=== PATIENT | male | born 1940 | race Caucasian/White ===

== ENCOUNTER 2017-04-12 06:28 | Inpatient (IN) | payer MEDICARE ==
--- NOTE | 2017-03-31 17:39 | HP ---
ADMISSION HISTORY AND PHYSICAL: DATE OF ADMISSION: 04/12/17 ATTENDING SURGEON: Dr. Donnie Galindo (dictated by FERNANDO Brown). CHIEF COMPLAINT: Abdominal wall hernia. HISTORY OF PRESENT ILLNESS: This is a 76-year-old male who underwent laparotomy in June 2016 for lysis of adhesions causing small-bowel obstruction. Surgery also included repair of a small bowel enterotomy. The patient had an otherwise uneventful recovery. In early January of this year, he noted the presence of a bulge in the superior portion of the incision, which has increased in size over time. He denies any pain related to the bulge. He does note increased bowel frequency (4 to 6 per day formed) since the mu-ism of the bulge. He denies any bright red blood per rectum or melena. He has had previous colonoscopies, the most recent being around 2007 and due for 10-year followup next year. He has been seen in the office by Dr. Galindo most recently in January and then again on 03/17/17. CT scan of the abdomen and pelvis was performed on 03/16/17 showing colon containing hernia superior to the umbilicus. Also noted was small bowel containing diastasis inferiorly. By exam, Dr. Galindo can appreciate the supraumbilical defect, which is nontender and easily reducible. There is no palpable defect inferior to the umbilicus. Dr. Galindo has discussed with him the indications for repair, the risks, benefits, and alternatives and the plan to use a mesh. The patient' s questions have been answered and he would like to proceed as scheduled with open repair of ventral incisional hernia with mesh. PAST MEDICAL HISTORY: 1. Chronic atrial fibrillation. 2. Hypothyroidism. 3. Status post pacemaker placement. PAST SURGICAL HISTORY: 1. As far as surgeries, he is status post what sounds like an open right inguinal hernia x2, laparoscopic (likely intraperitoneal). 2. Left inguinal hernia. 3. Left knee arthroscopy. 4. Bilateral cataract extraction. 5. Left eye surgery for what sounds like an entropion. CURRENT MEDICATIONS: 1. Pradaxa 150 mg b.i.d. (as the patient's renal function is normal, his last dose will be the morning of 04/10/17). 2. Tikosyn 500 mcg b.i.d. 3. Ramipril 5 mg daily. 4. Levothyroxine 100 mcg daily. 5. Multivitamin once daily. 6. Vitamin D 2000 IU once daily. DRUG ALLERGIES: None known. FAMILY HISTORY: Noncontributory in terms of anesthesia problems, bleeding or clotting disorders. SOCIAL HISTORY: The patient is . 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 He is fairly active going to the gym 3 times a week and doing both cardio and resistance exercises on a regular basis. He quit smoking around 1968. He denies recent use of tobacco or other recreational drugs. REVIEW OF SYSTEMS: General: No recent constitutional symptoms. Weight had been stable. HEENT: He is in the process of seeing an ophthalmology plastic surgeon after consideration of further lid repair on the left. No recent changes in vision. Cardiovascular: No chest pain or palpitations. He sometimes does note when he is in atrial fibrillation which comes and goes. He is chronically anticoagulated because of his AFib. No definitive history of stroke or TIA. Respiratory: No problems reported. No chronic cough or shortness of breath. GI: No problems reported other than per the HPI. Specifically, no nausea or vomiting. : No problems reported. Endocrine: He is on thyroid replacement. He is not diabetic. PHYSICAL EXAMINATION GENERAL: Well-nourished, well-developed male in no acute distress. VITAL SIGNS: Height 70 inches, weight 175 pounds, blood pressure 124/70, pulse 66, respirations 16, temperature 97.9. HEENT: Pupils equal, round, and reactive. EOMs intact. There is some mild conjunctival erythema on the left, which he states has been a chronic problem. Oropharynx: Teeth in good repair. No intraoral lesions. NECK: No lymphadenopathy, thyromegaly, or masses. LUNGS: Clear to auscultation. No rales or wheezes. There is a palpable pacemaker in the left upper anterior chest wall. HEART: Regular rate and rhythm. No murmur noted. ABDOMEN: Well-healed midline incision with visible bulge when the patient strains. This was centered just at and above the umbilicus. By palpation, there is a 4.5 to 5 cm diameter defect, which is easily reducible and tender. The remaining portion of the infraumbilical incision appears intact. There are no other palpable abdominal masses or organomegaly. EXTREMITIES: Not done. GENITALIA: Not examined. RECTAL: Not done. BACK: No spinous process or CVA tenderness. NEUROLOGIC: Grossly intact. SKIN: Warm and dry. No suspicious rashes or lesions noted. IMPRESSION: Ventral incisional hernia. PLAN: Open repair of ventral incisional hernia with mesh. FERNANDO BERNAL CC: Dr. Tray Garcia at [facility]* [id number]/[facility] #: [id number] [facility]
[~2017-04-12 06:28] MED LIST: Buffered Lidocaine 1% SYRIN* 5 ML/SYR SYRINGE INTRADERM ONE
[2017-04-12] MEDS ORDERED: Bupivacaine 0.5% W/EPI SDV* 30 ML VIAL ONE (07:05)
[2017-04-12] MEDS ORDERED: Lidocaine 1% INJ* 10 MG/ML 30 ML SDV ONE (07:05)
[2017-04-12] MEDS ORDERED: ceFAZolin 2 GM PREMIX(*) 2 GM/50 ML BAG IVPB ONE (07:11)
[2017-04-12] MEDS ORDERED: Heparin VIAL(*) 5000 UNITS/ML VIAL (FIVE THOUSAND) ONE (07:11)
[2017-04-12] MEDS ORDERED: Buffered Lidocaine 1% SYRIN* 5 ML/SYR SYRINGE ONE (07:11)
[2017-04-12] MEDS ORDERED: fentaNYL* 50 MCG/ML 2 ML VIAL (100 MCG VIAL) ONE ×2 (08:03→10:39)
[2017-04-12] MEDS ORDERED: Atracurium* 10 MG/ML 10 ML VIAL ONE (08:03)
[2017-04-12] MEDS ORDERED: Propofol* 10 MG/ML 20 ML BTL IV PUSH ONE (08:10)
[2017-04-12] MEDS ORDERED: Lidocaine 2% PF * 5 ML VIAL ONE (08:10)
[2017-04-12] MEDS ORDERED: HYDROcodone/ACETAMIN 5-325 MG* 1 TAB PO PRN (08:52)
[2017-04-12] MEDS ORDERED: DiMENhydriNATE IV* 50 MG/ML VIAL IV PUSH PRN (08:52)
[2017-04-12] MEDS ORDERED: Atropine 1MG/ML INJ* 1 ML VIAL ONE (10:01)
[2017-04-12] MEDS ORDERED: Ondansetron INJ* 2 MG/ML VIAL IV PRN (10:37)
[2017-04-12] MEDS ORDERED: Acetaminophen TAB* 325 MG PO PRN (10:37)
[2017-04-12] MEDS ORDERED: HYDROmorphone* 1 MG/ML 1 ML SYR ONE (10:39)
[2017-04-12] MEDS: fentaNYL* 50 MCG/ML 2 ML VIAL (100 MCG VIAL) IV PRN ×2 (10:42→10:49)
[2017-04-12] MEDS: HYDROmorphone* 1 MG/ML 1 ML SYR IV PRN ×5 (10:49→11:11)
[2017-04-12] MEDS ORDERED: Morphine PCA ADULT* 5 MG/ML 30 ML ONE (10:50)
[2017-04-12] MEDS ORDERED: Morphine PCA ADULT* 5 MG/ML 30 ML PCA SCH ×2 (11:00→16:41)
[2017-04-12] MEDS: Heparin VIAL(*) 5000 UNITS/ML VIAL (FIVE THOUSAND) SUBCUT SCH ×2 (14:58→22:39)
[2017-04-12] MEDS: Ketorolac INJ* 15 MG/ML 1 ML VIAL IV PUSH SCH ×2 (17:43→22:37)
[2017-04-12] MEDS: Dofetilide CAP* 500 MCG PO SCH (20:41)
[2017-04-13] MEDS: Ketorolac INJ* 15 MG/ML 1 ML VIAL IV PUSH SCH ×4 (05:42→22:47)
[2017-04-13] MEDS: Levothyroxine TAB* 100 MCG TAB PO SCH (05:42)
[2017-04-13] MEDS: Heparin VIAL(*) 5000 UNITS/ML VIAL (FIVE THOUSAND) SUBCUT SCH ×3 (05:45→21:41)
[2017-04-13 05:54] LABS: Hematocrit 34 % (42-52); Hemoglobin 11.4 g/dl (14.0-18.0); Mean Corpuscular HGB Conc 34 g/dl (31-36); Mean Corpuscular Hemoglobin 33 pg (27-31); Mean Corpuscular Volume 98 fL (80-94); Mean Platelet Volume 7 um3 (7.4-10.4); Red Blood Count 3.46 10^6/ul (4.0-5.4); Red Cell Distribution Width 13 % (10.5-15); White Blood Count 6.5 10^3/ul (3.5-10.8)
[2017-04-13 06:18] LABS: BUN/Creatinine Ratio 21.7 (8-20); Calcium 8.4 mg/dL (8.6-10.3); EGFR African American 102.6 (>60); EGFR Non-African American 79.8 (>60); Potassium 3.8 mmol/L (3.5-5.0)
[2017-04-13] MEDS: Ramipril CAP* 5 MG PO SCH (07:46)
[2017-04-13] MEDS: Dofetilide CAP* 500 MCG PO SCH ×2 (07:47→21:13)
--- NOTE | 2017-04-13 08:09 | PN ---
Progress Note - Progress Note SOAP: Subjective: Pain much improved today--he was out of bed last night No SOB Tolerating some liquids, no N/V Objective: Temp Pulse Resp BP Pulse Ox 98.7 F 70 16 103/63 95 04/13/17 07:18 04/13/17 07:18 04/13/17 07:36 04/13/17 07:18 04/13/17 07:36 Intake & Output 04/11/17 04/12/17 04/13/17 04/14/17 06:59 06:59 06:59 06:59 Intake Total 4453 Output Total 1550 Balance 2903 Weight 180 lb 6.4 oz Intake: IV Fluids 3161 LR 2191 IVPB 372 LR 372 Oral 920 Output: FREIDA #1 85 FREIDA #2 65 Reeves 1400 Other: # Bowel Movements 02 Estimated Blood Loss MIN Comment PEX: Comfortable and awake and alert Lungs are clear Abd is soft and slightly distended. Dressing intact. FREIDA's in place with serosanguinous output. Dressing not changed. Extremities without edema Laboratory Results - last 24 hr 04/13/17 04/13/17 05:34 05:34 WBC 6.5 RBC 3.46 L Hgb 11.4 L Hct 34 L MCV 98 H MCH 33 H MCHC 34 RDW 13 Plt Count 123 L MPV 7 L Neut % (Auto) 74.6 Lymph % (Auto) 16.0 L Burleigh % (Auto) 7.8 Eos % (Auto) 1.4 Baso % (Auto) 0.2 Absolute Neuts (auto) 4.8 Absolute Lymphs (auto) 1.0 Absolute Monos (auto) 0.5 Absolute Eos (auto) 0.1 Absolute Basos (auto) 0 Absolute Nucleated RBC 0 Nucleated RBC % 0.1 Sodium 132 L Potassium 3.8 Chloride 100 L Carbon Dioxide 29 Anion Gap 3 BUN 20 Creatinine 0.92 Est GFR ( Amer) 102.6 Est GFR (Non-Af Amer) 79.8 BUN/Creatinine Ratio 21.7 H Glucose 104 H Calcium 8.4 L Assessment: POD# 1 s/p open repair with mesh of ventral incisional hernia Ileus Plan: D/C reeves Advance diet Increase activity, pulmonary toilet [employer] and toradol for pain Continue FREIDA drains
[2017-04-13] MEDS: Famotidine IV* 10 MG/ML 2 ML (20 mg) IV SLOW PU SCH ×2 (09:50→21:14)
--- NOTE | 2017-04-13 14:59 | OP ---
OPERATIVE REPORT: DATE OF OPERATION: 04/12/17 - inpatient room #338-01 DATE OF : 38 SURGEON: Donnie Galindo MD PIANO REGULATOR INSPECTOR: FERNANDO Liao ANESTHESIOLOGIST: Dr. Roy. ANESTHESIA: General with local. PRE-OP DIAGNOSIS: Ventral incisional hernia. POST-OP DIAGNOSIS: Ventral incisional hernia. OPERATIVE PROCEDURE: Open repair of ventral incisional hernia with Ventrio ST hernia patch - 13.8 x 17.8 cm placed in underlay position. ESTIMATED BLOOD LOSS: 50 cc. IV FLUIDS: 1 L of crystalloid. SPECIMENS: Portion of omentum. DRAINS: Two #10 FREIDA drains placed in subcutaneous space and left in the right side of the abdominal wall. COMPLICATIONS: None. BRIEF HISTORY: Mr. Darinel Diaz is a 76-year-old gentleman who had undergone exploratory laparotomy last fall for an acute small bowel obstruction. He has developed an upper abdominal wall incisional hernia and after being seen in the office several times and discussing its findings and the fact that it is increased in size over the past several months, he is now to undergo an elective repair. The procedure was discussed with the patient and his and the risks and benefits were clearly outlined in the preoperatively transcribed history and physical. DESCRIPTION OF PROCEDURE: Written informed consent was obtained, the abdomen was marked with indelible ink and preoperative antibiotics were administered. The patient was taken to the operating room and placed in the supine position. Sequential compression devices and warming blanket were applied. General anesthesia was administered. A Turpin catheter was inserted. The abdomen was prepped and draped in the usual sterile fashion. Time-out verification was then completed. The incisional hernia was in the upper third of the abdomen above the umbilicus and was approximately 4 cm x 4 cm. The previous incision was opened from its superior aspect down below the umbilicus and with care, we dissected down to the fascial and hernia defect with sac. We were able to identify this and enter this and entered the peritoneal cavity. Fortunately, there were very few and minimal adhesions and it was mainly omentum to the anterior abdominal wall and this was taken down using sharp dissection as well as the cautery device to expose the underside of the anterior abdominal wall circumferentially. We were also able to remove some of the omentum down the midline without difficulty. There was a small portion of omentum that was hemorrhagic and we did transect this at its base with 2-0 silk tie and the specimen was sent for pathology. Fortunately, the lower portion of the abdominal cavity was also free of adhesions. I was able to palpate down the entire length of the incision. On the preoperative CT scan, there had been concern for diastasis down the lower portion of the incision and on palpation, this did not appear to be hernia , but intact fascia, although somewhat thinner as the rectus muscle was somewhat at this point but I did not appreciate this was a hernia that required surgical attention and thus no further dissection was done in this area. Next, the midline fascia was mobilized in lateral directions on either side at least 8 to 9 cm laterally. I excised the hernia sac and some of the scar tissue at the midline at the site of the sac and then also performed some relaxing incisions laterally over the oblique muscles and to the point where we were able to bring the healthy fascial edges together without apparent undo tension. Once this was complete and the dissection intra-abdominally was finished, he placed a Ventrio ST hernia patch 13.8 cm x 17.8 cm into the abdominal cavity, which was oriented correctly and then used a Capsure stapling device to adhere the mesh to the anterior abdominal wall to cover the defect nicely with generous overlap. The tacks were placed at about 1 cm intervals around the circumference of the mesh without difficulty. This area was then irrigated. Hemostasis was assured. The hughes fascia was closed with interrupted #1 Polysorb suture to cover the mesh. Due to the undermining on either side of the incision, I did place two #10 FREIDA drains one in the left and one in the right and exited through separate stab wounds inferior to the incision on the anterior abdominal wall. These were sutured to the skin with interrupted 3-0 Prolene sutures. A 3-0 Polysorb suture was then used to close the subcutaneous tissue at the midline. The skin was approximated with stapling device. Dry sterile dressings were applied and the patient tolerated the procedure well and was taken to recovery room in stable condition. CC: [facility]; Dr. Tray Garcia* [id number]/[facility] #: [id number] ANICETO
[2017-04-14] MEDS: Levothyroxine TAB* 100 MCG TAB PO SCH (05:30)
[2017-04-14] MEDS: Ketorolac INJ* 15 MG/ML 1 ML VIAL IV PUSH SCH ×3 (05:31→17:15)
[2017-04-14] MEDS: Heparin VIAL(*) 5000 UNITS/ML VIAL (FIVE THOUSAND) SUBCUT SCH (05:33)
[2017-04-14] MEDS ORDERED: Morphine INJ* 2 MG/ML 1 ML SYRINGE IV PRN (08:31)
[2017-04-14] MEDS ORDERED: oxyCODONE/Acetamin 5/325 MG* TAB PO PRN (08:31)
[2017-04-14 09:24] LABS: BUN/Creatinine Ratio 14.4 (8-20); Calcium 9.1 mg/dL (8.6-10.3); EGFR African American 96.5 (>60); Phosphorus 2.6 mg/dL (2.5-5.0); Potassium 4.3 mmol/L (3.5-5.0)
[2017-04-14] MEDS: Ramipril CAP* 5 MG PO SCH (09:41)
[2017-04-14] MEDS: Famotidine IV* 10 MG/ML 2 ML (20 mg) IV SLOW PU SCH ×2 (09:41→20:46)
[2017-04-14] MEDS: Dofetilide CAP* 500 MCG PO SCH ×2 (09:41→20:46)
[2017-04-14] MEDS ORDERED: Metoprolol Tartrate IV* 1 MG/ML 5 ML VIAL IV PRN (10:33)
[2017-04-14] MEDS: CMC:Dabigatran CAP(NF) 150 MG CAP PO SCH ×2 (10:53→20:46)
--- NOTE | 2017-04-14 17:12 | PN ---
Progress Note - Progress Note SOAP: Subjective: Patient seen initially today at 0830 He has noted that he is back in atrial fibrillation No CP or SOB although he does require oxygen He is passing flatus and is tolerating po Objective: Temp Pulse Resp BP Pulse Ox 97.5 F 70 18 108/60 94 04/14/17 15:31 04/14/17 15:31 04/14/17 15:31 04/14/17 15:31 04/14/17 15:31 Intake & Output 04/12/17 04/13/17 04/14/17 04/15/17 06:59 06:59 06:59 06:59 Intake Total 4453 3356 1335 Output Total 1550 1865 595 Balance 2903 1491 740 Weight 180 lb 6.4 oz Intake: IV Fluids 3161 996 575 LR 2191 575 IVPB 372 10 LR 372 Oral 920 2350 760 Output: FREIDA #1 85 20 10 FREIDA #2 65 45 10 Urine 1800 575 Turpin 1400 Other: Estimated Void Medium # Bowel Movements 02 Estimated Blood Loss MIN Comment PEX: Comfortable Lungs are clear-slight decrease in breath sounds at the bases-no rales Cor--now slow and regular but when seen earlier this morning it was irregularly irregular. Abd is soft and slightly distended. Incision is clean and dry. Bowel sounds are present. FREIDA's with a small amount of serosanguinous fluid in bulb Ext without edema Laboratory Results - last 24 hr 04/14/17 08:59 Sodium 134 Potassium 4.3 Chloride 101 Carbon Dioxide 28 Anion Gap 5 BUN 14 Creatinine 0.97 Est GFR ( Amer) 96.5 Est GFR (Non-Af Amer) 75.0 BUN/Creatinine Ratio 14.4 Glucose 94 Calcium 9.1 Phosphorus 2.6 Magnesium 2.0 EKG earlier today with afib Assessment: POD# 2 s/p open repair with mesh of ventral incisional hernia Ileus-resolving Afib with pacemaker in place--he has episodes of paroxysmal afib and is on anti- coagulation. Appears to be back in NSR now. Labs noted Plan: Advance diet Re-start anticoagulation Hospitalist consult-discussed with Dr. Lawrence D/C IVF Oral analgesia Plan d/c tomorrow and d/c of drains on discharge.
--- NOTE | 2017-04-14 20:04 | CONS ---
CONSULTATION REPORT: DATE OF CONSULT: 04/14/17 PRIMARY CARE PROVIDER: Dr. Garcia. SERVICE REQUESTING CONSULTATION: Surgery. REASON FOR CONSULTATION: Atrial fibrillation. EMERGENCY RESPONSE COORDINATOR: Dr. Vasques in [place]. SOURCE OF INFORMATION: History obtained from interview with the patient and review of past medical records. RELIABILITY: Fair. HISTORY OF PRESENT ILLNESS: This is a 76-year-old man with past medical history of paroxysmal atrial fibrillation, hypothyroidism, as well as permanent pacemaker placed in 2003 who is postop day 2 open ventral incisional hernia repair with mesh without complication performed by Dr. Galindo. He has been recovering well; however, night prior to consultation, he noted that he felt "tired" after a short walk and thought that he may be back in atrial fibrillation. He denied any palpitations, chest pain or shortness of breath; however, does note that he typically feels more fatigued when he is in atrial fibrillation. He knows he also had flipped from normal sinus rhythm into atrial fibrillation after his last abdominal surgery. This morning, an EKG was performed, confirmed the patient was atrial fibrillation and the hospitalist service was consulted for consultation. When seen by this author, he had just completed walking 1000 feet with the aide without any shortness of breath, chest pain. He has had no nausea or vomiting. His pain is well controlled. He otherwise has no complaints. PAST MEDICAL HISTORY: 1. Paroxysmal atrial fibrillation diagnosed around 1999. 2. Hypothyroidism. 3. Permanent pacemaker placed in 2003. 4. History of hypertension. PAST SURGICAL HISTORY: Includes: 1. Open right inguinal hernia repair twice. 2. Left inguinal hernia repair. 3. Left knee arthroscopy. 4. Bilateral cataract excision. 5. Left eye surgery. HOME MEDICATIONS: Include: 1. Pradaxa. 2. Tikosyn. 3. Ramipril. 4. Levothyroxine. CURRENT MEDICATIONS: Include: 1. Acetaminophen as needed. 2. Pradaxa 150 mg twice daily. 3. Tikosyn 500 mg twice daily. 4. Pepcid 20 mg IV twice daily. 5. Toradol 15 mg IV every 6 hours as needed for pain. 6. Levothyroxine 100 mcg daily. 7. Morphine 1 mg every 2 hours as needed. 8. Zofran 4 mg IV every 4 hours as needed for nausea. 9. Percocet 5/325 one tablet every 4 hours as needed for pain. 10. Ramipril 5 mg in the morning. ALLERGIES: No known drug allergies. FAMILY HISTORY: Significant for brother who is from an [place] at the age of 3636 years old. SOCIAL HISTORY: He is . He smoked tobacco, quit in 1968. REVIEW OF SYSTEMS: As per HPI, includes sensation of feeling tired yesterday upon walking, now resolved. Additionally, abdominal pain that is well controlled with analgesia. PHYSICAL EXAMINATION: Vitals: Blood pressure 125/76, heart rate 89, respiratory rate 16, 98% on room air, and T-max over the course of the hospital stay 98.7 degrees Fahrenheit. General: He is younger than stated age, sitting up in chair. He is interactive, pleasant, in no apparent distress. HEENT: Oropharynx is clear. Moist mucous membranes. Sclerae anicteric. He has non- elevated JVD. No cervical or supraclavicular lymphadenopathy. Cardiac: Irregularly irregular rhythm with regular heart rates. He has symmetric airway expansion with trace rales in his right base. Abdomen is in a binder with 2 drains, draining serosanguineous fluid. Extremities: Warm and well perfused without clubbing, cyanosis, or edema. Neurologic: He is alert and oriented x3. He has no apparent anxiety, agitation or depression. DIAGNOSTIC STUDIES/LAB DATA: Laboratory data reviewed, notable for potassium of 4.3, magnesium of 2.0, hemoglobin was 11.4 yesterday. Data reviewed. EKG on 04/14/17 notable for atrial fibrillation, ventricular rate 98 beats per minute, left axis, normal R-wave progression, no ST or T-wave changes. ASSESSMENT AND PLAN: This 76-year-old man on postop day 2 status post open ventral and incisional hernia repair, history of paroxysmal atrial fibrillation who is now in atrial fibrillation. 1. Hernia repair. Care per primary and surgical team. 2. Atrial fibrillation. Pradaxa has been restarted. I have discontinued heparin now that the Pradaxa is restarted. Tikosyn has been restarted since the . Agree with continued therapy for rhythm control. At this point, he requires no electrolyte replacement. Goal is to maintain potassium greater than 4, magnesium greater than 2. I suspect that with paroxysmal atrial fibrillation , it is not uncommon to be in atrial fibrillation, it is of no threat as long as he is anticoagulated and his rate is reasonably well controlled at less than 120 beats per minute. I have added IV metoprolol 5 mg to be given should his rate be greater than 120 sustained for 20 to 30 minutes with hold parameters for blood pressure. In the absence of shortness of breath, chest discomfort, palpitations, nausea and vomiting, he requires no further intervention for atrial fibrillation. 3. History of hypertension. Continue ramipril as you are doing. 4. Hypothyroidism. Continue Synthroid as you are doing. 5. DVT prophylaxis, Pradaxa. Heparin is discontinued. I will sign off the care of this patient. Please do not hesitate to call if additional questions or concerns, page [phone]. CC: Dr. Garcia* [id number]/[facility] #: [id number] ANICETO
[2017-04-15] MEDS: Ketorolac INJ* 15 MG/ML 1 ML VIAL IV PUSH SCH ×2 (00:42→05:37)
[2017-04-15] MEDS: Levothyroxine TAB* 100 MCG TAB PO SCH (06:05)
[2017-04-15] MEDS: Dofetilide CAP* 500 MCG PO SCH (07:57)
[2017-04-15] MEDS: CMC:Dabigatran CAP(NF) 150 MG CAP PO SCH (07:57)
[2017-04-15] MEDS: Ramipril CAP* 5 MG PO SCH (07:57)
[2017-04-15] MEDS: Famotidine IV* 10 MG/ML 2 ML (20 mg) IV SLOW PU SCH (07:58)
--- NOTE | 2017-04-15 08:59 | PN ---
Progress Note - Progress Note SOAP: Subjective: Doing well-had BM and passing flatus Tolerating po Pain well controlled--not using narcotics Objective: Temp Pulse Resp BP Pulse Ox 97.8 F 71 16 148/78 97 04/15/17 03:45 04/15/17 03:45 04/15/17 08:00 04/15/17 03:45 04/15/17 08:00 Intake & Output 04/13/17 04/14/17 04/15/17 04/16/17 06:59 06:59 06:59 06:59 Intake Total 4453 3356 2335 Output Total 1550 1865 928 Balance 2903 1491 1407 Weight 180 lb 6.4 oz Intake: IV Fluids 3161 996 575 LR 2191 575 IVPB 372 10 LR 372 Oral 920 2350 1760 Output: FREIDA #1 85 20 28 FREIDA #2 65 45 25 Urine 1800 875 Turpin 1400 Other: Estimated Void Medium # Bowel Movements 02 Estimated Stool Amount Small Estimated Blood Loss MIN Comment PEX: Comfortable Lungs are clear Cor is RRR--appears to be in NSR Abd is soft and slightly distended. Bowel sounds are present. Incision is clean and dry. FREIDA drains in place-small amount of serosanguinous fluid in each bulb Ext without edema Assessment: POD# 3 s/p open repair of ventral incisional hernia with mesh AFIB-back in NSR, on Pradaxa Ileus-resolved Appreciate hospitalist consult. Plan: D/C home today Drains removed today Outpatient follow up next week--staple removal All other instructions given and reviewed with patient.
[2017-04-15 10:01] VITALS: BP 148/77
--- NOTE | 2017-04-15 22:49 | DS ---
CC: Dr. Tray Garcia DISCHARGE SUMMARY: DATE OF ADMISSION: 04/12/17 DATE OF DISCHARGE: 04/15/17 ATTENDING SURGEON: Dr. Donnie Galindo. HOSPITAL COURSE: Please see admission history and physical for admission details. The patient was t aken to the operating room on 04/12/17, where he underwent an open repair of a ventral incisional he rnia with mesh by Dr. Galindo. Surgery was uneventful. His postoperative course was notable for initial difficulty with pain control, but this improved over the subsequent 24 to 48 hours and by morning of discharge, the patient was requiring only Toradol p.r.n. for pain. He did have an epis ode of atrial fibrillation, but was asymptomatic. He was seen in consult by the hospitalist, Dr. Waqas fitzpatrick. As of the morning of discharge, he was tolerating diet well. Had had a bowel movement and wa s ambulating and voiding well. PHYSICAL EXAMINATION: Temperature 97.8, blood pressure 148/78, pulse 71 and regular, respirations 1 6, room air saturation 97%. Heart: Regular rate and rhythm. Lungs: Clear to auscultation. Abdom en: Healing midline incision which is clean. No evidence of infection. Lopez-Martínez drains with small amounts of serosanguineous fluid. These were each removed and a dry sterile dressing placed. He will continue to use the abdominal binder. DISCHARGE INSTRUCTIONS: Instructions were reviewed regarding wound care, diet, and activity. Robby brenner is scheduled in our office on April 20. DISCHARGE MEDICATIONS: He will resume all of his usual home medications includin. Tikosyn 500 mcg b.i.d. 2. Ramipril 5 mg q.a.m. 3. Levothyroxine 100 mcg q. day. 4. Multivitamin once daily. 5. Vitamin D3 2000 International Units once daily. 6. Dabigatran 150 mg b.i.d. 7. Chlorpheniramine 4 mg q.12 hours p.r.n. FERNANDO BERNAL [id number]/[facility] #: [id number]
== END 2017-04-15 10:30 | disposition home or self-care (01) | DRG 355 ==
LOC: OR 06:28 → EDSTATUS 07:45 → SSU 10:37 → OBSVTOIN 04-13 13:03
PROVIDERS: ADMIT Surgery; ATTEND Surgery
PROC: 0WUF0JZ Supplement Abdominal Wall with Synthetic Substitute, Open Approach (ICD-10-PCS; principal; 2017-04-13)
PROC: 0DBS0ZZ (ICD-10-PCS; 2017-04-13)
DX: K43.2 Incisional hernia without obstruction or gangrene (principal); I48.0 Paroxysmal atrial fibrillation; I48.2 Chronic atrial fibrillation; I10 Essential (primary) hypertension; M19.90 Unspecified osteoarthritis, unspecified site; E03.9 Hypothyroidism, unspecified; Z95.0 Presence of cardiac pacemaker; Z98.42 Cataract extraction status, left eye; Z98.41 Cataract extraction status, right eye; Z87.891 Personal history of nicotine dependence; Z82.49 Family history of ischemic heart disease and other diseases of the circulatory system; Z79.01 Long term (current) use of anticoagulants
CPT/HCPCS: 36415; 80048; 83735; 84100; 85025; 88305; 93005; A9270-GY; C1781; G0378; J0461; J0690; J1170; J1644; J1885; J2001; J2704; J3010